=== PATIENT | female | born 1940 | race African-American/Black ===

== ENCOUNTER 2021-08-05 15:22 | Inpatient (IN) ==
[2021-08-05 16:58] LABS: Basophils % 0.5 % (0.0-0.8); Eosinophils # 0.1 10*3/uL (0.0-0.87); Eosinophils % 2.1 % (0.00-10.9); Hematocrit 34.6 VOL% (35.7-47.0); Hemoglobin 11.1 GM/DL (12.0-16.0); Immature Granulocytes % 0.2 %; Immature Granulocytes Absolute 0.01 #; Lymphocytes # 1.8 10*3/uL (1.4-4.0); Lymphocytes % 29.3 % (21.3-54.2); Mean Corpuscular HGB Conc 32.1 GM/DL (32-36); Mean Platelet Volume 10.5 FL (9.6-12.0); Monocytes # 0.8 10*3/uL (0.11-0.8); Monocytes % 12.4 % (1.7-12.7); Neutrophils % 55.5 % (38.7-73.9); Platelet Count 230 T/CUMM (130-400); Red Blood Count 3.68 MC/CUMM (3.8-5.5); Red Cell Distribution Width 14.7 % (9.3-17.3); White Blood Count 6.1 T/CUMM (4-12)
[2021-08-05 17:07] LABS: Bacteria,Urine Occasional /HPF (Few); Hyaline Casts,Urine 1 /LPF (0-3); RBC,Urine 4 /HPF (0-4); Squamous Epithelial Cell,Urine Occasional /HPF (0-10)
[2021-08-05 17:09] LABS: Bilirubin,Urine Negative (Negative); Blood, Urine Trace mg/dL (Negative); Glucose,Urine (UA) Negative (Negative); Ketones,Urine Negative (Negative); Nitrite,Urine Negative (Negative); Protein,Urine Negative (Negative); Urine Appearance Clear (Clear); Urine Color Light Yellow (Yellow); Urine Specific Gravity 1.015 (1.001-1.035); Urine Urobilinogen 0.2 eU/dL (<2.0)
[2021-08-05 17:11] LABS: Alanine Aminotransferase 13 U/L (13-56); Albumin 3.3 G/DL (3.4-5.0); Alkaline Phosphatase 259 U/L (45-117); Aspartate Amino Transferase 14 U/L (0-37); Bilirubin,Total < 0.39 MG/DL (0.20-1.00); Blood Urea Nitrogen 19 MG/DL (7-18); Calcium 9.6 MG/DL (8.5-10.1); Carbon Dioxide 29 MMOL/L (21-32); Chloride 112 MMOL/L (98-107); Estimated Glom Filtration Rate 45 ML/MIN; Glucose 100 MG/DL (74-106); Osmolality,Calculated 287.8 MOS/KG (273-304); Potassium 3.4 MMOL/L (3.5-5.1); Sodium 144 MMOL/L (136-145)
[2021-08-05] MEDS ORDERED: DEXTROSE 50% 25 GM/50 ML VIAL IV PRN (18:42)
[2021-08-05] MEDS ORDERED: DEXTROSE 10% 250 ML BAG IV PRN (18:42)
[2021-08-05] MEDS ORDERED: ACETAMINOPHEN 325 MG TABLET PO PRN (18:42)
[2021-08-05] MEDS ORDERED: ONDANSETRON 4 MG/2 ML VIAL IV PRN (18:42)
[2021-08-05] MEDS ORDERED: GLUCAGON 1 MG VIAL IM PRN (18:42)
[2021-08-05] MEDS: SODIUM CHLORIDE 0.45% 1,000 ML IV SCH (19:55)
[2021-08-05] MEDS ORDERED: cefTRIAXone 1,000 MG in SODIUM CHLORIDE 0.9% 100 ML IV SCH (21:00)
[2021-08-05] MEDS: HEPARIN 5,000 UNIT/1 ML VIAL SUBCUT SCH (23:34)
[2021-08-06] MEDS: INSULIN REGULAR 100 UNIT/ML SUBCUT SCH ×4 (00:29→21:06)
[2021-08-06] MEDS: SODIUM CHLORIDE 0.45% 1,000 ML IV SCH ×2 (04:49→13:53)
[2021-08-06 05:00] LABS: Basophils % 0.4 % (0.0-0.8); Eosinophils # 0.2 10*3/uL (0.0-0.87); Eosinophils % 2.7 % (0.00-10.9); Hematocrit 35.9 VOL% (35.7-47.0); Hemoglobin 11.5 GM/DL (12.0-16.0); Immature Granulocytes % 0.1 %; Immature Granulocytes Absolute 0.01 #; Lymphocytes # 2.2 10*3/uL (1.4-4.0); Lymphocytes % 32.3 % (21.3-54.2); Mean Corpuscular Volume 94.2 FL (87-102); Mean Platelet Volume 10.8 FL (9.6-12.0); Monocytes # 0.6 10*3/uL (0.11-0.8); Monocytes % 9.2 % (1.7-12.7); Neutrophils % 55.3 % (38.7-73.9); Platelet Count 220 T/CUMM (130-400); Red Blood Count 3.81 MC/CUMM (3.8-5.5); Red Cell Distribution Width 14.6 % (9.3-17.3); White Blood Count 6.8 T/CUMM (4-12)
[2021-08-06 05:36] LABS: Calcium 9.5 MG/DL (8.5-10.1); Osmolality,Calculated 281.3 MOS/KG (273-304); Potassium 3.2 MMOL/L (3.5-5.1); Thyroid Stimulating Hormone 0.583 uIU/ml (0.358-3.74)
[2021-08-06] MEDS ORDERED: POTASSIUM CHLORIDE 20 MEQ TABLET PO PRN (07:53)
[2021-08-06] MEDS ORDERED: carvediloL 12.5 MG TABLET PO SCH ×2 (08:00→17:00)
[2021-08-06] MEDS ORDERED: PANTOPRAZOLE 40 MG TABLET PO SCH (09:00)
[2021-08-06] MEDS ORDERED: lisinopriL 10 MG TABLET PO SCH (09:00)
[2021-08-06] MEDS: HEPARIN 5,000 UNIT/1 ML VIAL SUBCUT SCH ×2 (13:52→20:59)
[2021-08-06] MEDS: ASPIRIN EC 81 MG TABLET PO SCH (14:34)
[2021-08-06] MEDS: hydrALAZINE 20 MG/1 ML VIAL IV PRN (17:41)
[2021-08-06] MEDS ORDERED: ATORVASTATIN 40 MG TABLET PO SCH (21:00)
[2021-08-06] MEDS ORDERED: HEPARIN DRIP 25,000 UNITS/500 ML PREMIX IV SCH (22:00)
[2021-08-07] MEDS: SODIUM CHLORIDE 0.45% 1,000 ML IV SCH (01:20)
[2021-08-07] MEDS: INSULIN REGULAR 100 UNIT/ML SUBCUT SCH ×4 (02:08→21:41)
[2021-08-07 05:33] LABS: Basophils % 0.3 % (0.0-0.8); Eosinophils # 0.1 10*3/uL (0.0-0.87); Hematocrit 36.2 VOL% (35.7-47.0); Hemoglobin 11.9 GM/DL (12.0-16.0); Immature Granulocytes % 0.3 %; Immature Granulocytes Absolute 0.02 #; Lymphocytes # 1.4 10*3/uL (1.4-4.0); Lymphocytes % 20.6 % (21.3-54.2); Mean Corpuscular HGB Conc 32.9 GM/DL (32-36); Mean Corpuscular Volume 92.3 FL (87-102); Mean Platelet Volume 9.9 FL (9.6-12.0); Monocytes # 0.7 10*3/uL (0.11-0.8); Monocytes % 10.4 % (1.7-12.7); Neutrophils % 66.4 % (38.7-73.9); Platelet Count 241 T/CUMM (130-400); Red Blood Count 3.92 MC/CUMM (3.8-5.5); Red Cell Distribution Width 14.6 % (9.3-17.3); White Blood Count 6.6 T/CUMM (4-12)
[2021-08-07 05:58] LABS: Risk Ratio 3.69; VLDL Cholesterol 16.2 MG/DL
[2021-08-07 06:12] LABS: Calcium 9.4 MG/DL (8.5-10.1); Osmolality,Calculated 283.4 MOS/KG (273-304); Potassium 3.9 MMOL/L (3.5-5.1)
[2021-08-07 07:44] LABS: Calcium 9.9 MG/DL (8.5-10.1); Osmolality,Calculated 278.7 MOS/KG (273-304); Phosphorous 3.3 MG/DL (2.5-4.9); Potassium 3.9 MMOL/L (3.5-5.1)
[2021-08-07] MEDS: ASPIRIN EC 81 MG TABLET PO SCH (09:38)
[2021-08-07] MEDS: ATORVASTATIN 80 MG TABLET PO SCH (21:40)
[2021-08-08] MEDS: INSULIN REGULAR 100 UNIT/ML SUBCUT SCH ×4 (04:47→21:34)
[2021-08-08 04:56] LABS: Basophils % 0.1 % (0.0-0.8); Eosinophils # 0.2 10*3/uL (0.0-0.87); Eosinophils % 1.9 % (0.00-10.9); Hematocrit 37.3 VOL% (35.7-47.0); Hemoglobin 12.2 GM/DL (12.0-16.0); Immature Granulocytes % 0.4 %; Immature Granulocytes Absolute 0.03 #; Lymphocytes # 1.5 10*3/uL (1.4-4.0); Lymphocytes % 19.8 % (21.3-54.2); Mean Corpuscular HGB Conc 32.7 GM/DL (32-36); Mean Corpuscular Volume 92.6 FL (87-102); Mean Platelet Volume 10.6 FL (9.6-12.0); Monocytes # 0.9 10*3/uL (0.11-0.8); Monocytes % 11.8 % (1.7-12.7); Platelet Count 236 T/CUMM (130-400); Red Blood Count 4.03 MC/CUMM (3.8-5.5); Red Cell Distribution Width 14.8 % (9.3-17.3); White Blood Count 7.7 T/CUMM (4-12)
[2021-08-08 05:13] LABS: Alanine Aminotransferase 12 U/L (13-56); Albumin 2.9 G/DL (3.4-5.0); Alkaline Phosphatase 244 U/L (45-117); Aspartate Amino Transferase 13 U/L (0-37); Bilirubin,Total < 0.39 MG/DL (0.20-1.00); Blood Urea Nitrogen 17 MG/DL (7-18); Calcium 9.3 MG/DL (8.5-10.1); Carbon Dioxide 27 MMOL/L (21-32); Chloride 110 MMOL/L (98-107); Estimated Glom Filtration Rate 55 ML/MIN; Glucose 111 MG/DL (74-106); Osmolality,Calculated 283.3 MOS/KG (273-304); Potassium 3.5 MMOL/L (3.5-5.1); Sodium 141 MMOL/L (136-145); Total Protein 6.9 G/DL (6.4-8.2)
[2021-08-08 06:28] LABS: PT Patient Result 11.2 SECS (10.5-12.0)
[2021-08-08] MEDS: ASPIRIN EC 81 MG TABLET PO SCH (08:32)
[2021-08-08] MEDS: LACTATED RINGERS 1,000 ML IV SCH (09:05)
[2021-08-08] MEDS: hydrALAZINE 20 MG/1 ML VIAL IV PRN (12:38)
[2021-08-08] MEDS ORDERED: MORPHINE 2 MG/1 ML SYRINGE IV PRN (13:38)
[2021-08-08] MEDS ORDERED: TUBERCULIN SKIN TEST 0.1 ML SYRINGE INTRADERM ONE (17:00)
[2021-08-08] MEDS: ATORVASTATIN 80 MG TABLET PO SCH (20:39)
[2021-08-09] MEDS: INSULIN REGULAR 100 UNIT/ML SUBCUT SCH ×2 (04:28→09:21)
[2021-08-09 06:13] LABS: Basophils % 0.3 % (0.0-0.8); Eosinophils # 0.1 10*3/uL (0.0-0.87); Eosinophils % 1.5 % (0.00-10.9); Hematocrit 37.7 VOL% (35.7-47.0); Hemoglobin 12.4 GM/DL (12.0-16.0); Immature Granulocytes % 0.3 %; Immature Granulocytes Absolute 0.02 #; Lymphocytes # 1.3 10*3/uL (1.4-4.0); Lymphocytes % 16.8 % (21.3-54.2); Mean Corpuscular HGB Conc 32.9 GM/DL (32-36); Monocytes % 12.7 % (1.7-12.7); Neutrophils % 68.4 % (38.7-73.9); Platelet Count 232 T/CUMM (130-400); Red Cell Distribution Width 14.9 % (9.3-17.3); White Blood Count 7.5 T/CUMM (4-12)
[2021-08-09 06:46] LABS: Calcium 9.2 MG/DL (8.5-10.1); Osmolality,Calculated 278.7 MOS/KG (273-304); Phosphorous 2.9 MG/DL (2.5-4.9); Potassium 3.7 MMOL/L (3.5-5.1)
[2021-08-09] MEDS ORDERED: RIVAROXABAN 20 MG TABLET PO SCH (08:00)
[2021-08-09] MEDS ORDERED: lisinopriL 10 MG TABLET PO SCH (09:00)
[2021-08-09] MEDS: ASPIRIN EC 81 MG TABLET PO SCH (09:53)
[2021-08-09] MEDS: LACTATED RINGERS 1,000 ML IV SCH (11:25)
[2021-08-09 12:18] VITALS: BP 168/81
== END 2021-08-09 14:33 | DRG 65 ==
LOC: N.ED 15:22 → N.EDINP 18:42 → SUATTDRO 18:42 → N.TELEN 19:50
PROVIDERS: ADMIT Internal Medicine; ATTEND Internal Medicine
PROC: EGDWPEG (ICD-10-PCS; 2021-08-08 08:05)

== ENCOUNTER 2022-04-20 01:54 | Observation (INO) ==
[2022-04-20 02:34] LABS: Basophils % 0.3 % (0.0-0.8); Eosinophils # 0.2 10*3/uL (0.0-0.87); Eosinophils % 2.6 % (0.00-10.9); Hematocrit 28.2 VOL% (35.7-47.0); Immature Granulocytes % 0.3 %; Immature Granulocytes Absolute 0.03 #; Mean Corpuscular HGB Conc 31.9 GM/DL (32-36); Mean Corpuscular Volume 95.6 FL (87-102); Mean Platelet Volume 10.1 FL (9.6-12.0); Monocytes # 0.7 10*3/uL (0.11-0.8); Neutrophils % 66.8 % (38.7-73.9); Platelet Count 322 T/CUMM (130-400); Red Blood Count 2.95 MC/CUMM (3.8-5.5); Red Cell Distribution Width 16.4 % (9.3-17.3); White Blood Count 9.2 T/CUMM (4-12)
[2022-04-20 02:41] LABS: Mucus,Urine Occasional /LPF (Occasional); RBC,Urine 1 /HPF (0-4); Squamous Epithelial Cell,Urine Occasional /HPF (0-10); Urine Appearance Clear (Clear); Urine Color Yellow (Yellow)
[2022-04-20 02:42] LABS: Bilirubin,Urine Negative (Negative); Blood, Urine Negative (Negative); Glucose,Urine (UA) Negative (Negative); Ketones,Urine Negative (Negative); Nitrite,Urine Negative (Negative); Protein,Urine Trace mg/dL (Negative)
[2022-04-20 03:00] LABS: Albumin 3.1 G/DL (3.4-5.0); Calcium 9.1 MG/DL (8.5-10.1); Osmolality,Calculated 287.1 MOS/KG (273-304); Total Protein 7.3 G/DL (6.4-8.2)
[2022-04-20] MEDS ORDERED: ONDANSETRON 4 MG/2 ML VIAL IV PRN (03:51)
[2022-04-20] MEDS ORDERED: GLUCAGON 1 MG VIAL IM PRN (03:55)
[2022-04-20] MEDS ORDERED: DEXTROSE 10% 250 ML BAG IV PRN (03:55)
[2022-04-20] MEDS ORDERED: levETIRAcetam 500 MG/5 ML VIAL IV STA (04:11)
[2022-04-20] MEDS: INSULIN REGULAR 100 UNIT/ML SUBCUT SCH ×4 (08:30→21:16)
[2022-04-20] MEDS: lisinopriL 20 MG TABLET PEG SCH (09:26)
[2022-04-20] MEDS: RIVAROXABAN 20 MG TABLET PEG SCH (09:26)
[2022-04-20] MEDS: carvediloL 6.25 MG TABLET PEG SCH ×2 (09:26→16:53)
[2022-04-20] MEDS ORDERED: traZODone 50 MG TABLET PEG SCH (21:00)
[2022-04-20] MEDS ORDERED: ATORVASTATIN 80 MG TABLET PEG SCH (21:00)
[2022-04-20] MEDS ORDERED: traZODone 50 MG TABLET PER TUBE SCH (23:00)
[2022-04-21 06:02] LABS: Osmolality,Calculated 281.3 MOS/KG (273-304); Potassium 3.9 MMOL/L (3.5-5.1)
[2022-04-21 06:54] LABS: Basophils % 0.6 % (0.0-0.8); Eosinophils # 0.3 10*3/uL (0.0-0.87); Eosinophils % 4.3 % (0.00-10.9); Hematocrit 28.4 VOL% (35.7-47.0); Hemoglobin 8.8 GM/DL (12.0-16.0); Immature Granulocytes % 0.3 %; Immature Granulocytes Absolute 0.02 #; Lymphocytes # 2.4 10*3/uL (1.4-4.0); Lymphocytes % 32.3 % (21.3-54.2); Mean Corpuscular Volume 98.3 FL (87-102); Mean Platelet Volume 10.2 FL (9.6-12.0); Monocytes # 0.6 10*3/uL (0.11-0.8); Monocytes % 8.3 % (1.7-12.7); Neutrophils % 54.2 % (38.7-73.9); Platelet Count 322 T/CUMM (130-400); Red Blood Count 2.89 MC/CUMM (3.8-5.5); Red Cell Distribution Width 16.9 % (9.3-17.3); White Blood Count 7.3 T/CUMM (4-12)
[2022-04-21 07:09] LABS: PT Patient Result 11.4 SECS (10.1-12.1); Partial Thromboplastin Time 28.4 SECS (23.7-32.9)
[2022-04-21] MEDS: carvediloL 6.25 MG TABLET PEG SCH (08:42)
[2022-04-21] MEDS: RIVAROXABAN 20 MG TABLET PEG SCH (08:42)
[2022-04-21] MEDS: lisinopriL 20 MG TABLET PEG SCH (08:42)
[2022-04-21] MEDS: INSULIN REGULAR 100 UNIT/ML SUBCUT SCH (08:46)
[2022-04-21 09:10] VITALS: BP 139/78
== END 2022-04-21 10:42 | disposition home or self-care (01) ==
LOC: N.ED 01:54 → N.EDINP 01:54 → N.2W 05:04
PROVIDERS: ADMIT Internal Medicine; ATTEND Internal Medicine